=== PATIENT | female | born 1955 | race Caucasian/White ===

== ENCOUNTER 2020-09-18 06:17 | Day surgery (SDC) | payer MEDICARE, OTHER ==
[2020-09-18] MEDS ORDERED: Sodium Chloride 0.9% 1,000 ML IV SCH (07:00)
[2020-09-18] MEDS ORDERED: Propofol 200 MG/20 ML SDV ONE (07:21)
[2020-09-18] MEDS ORDERED: Midazolam 1 MG/ML 2 ML SDV ONE (07:21)
[2020-09-18] MEDS ORDERED: fentaNYL 100 MCG/2 ML SDV ONE (07:21)
--- NOTE | 2020-09-18 12:14 | OR ---
DATE OF PROCEDURE: 09/18/2020 SURGEON: Trey Neal MD PROCEDURE: Colonoscopy. FINDINGS: Normal colonoscopy. COMPLICATIONS: None. RAIL SPLITTER: None. ANESTHESIA: MAC. PREOPERATIVE DIAGNOSIS: Screening colonoscopy. POSTOPERATIVE DIAGNOSIS: Screening colonoscopy. RISKS: Risks, benefits, alternatives, and limitations including, but not limited to infection, bleeding, and perforation were explained to the patient who wished to proceed. PROCEDURE IN DETAIL: The patient was placed in left lateral decubitus position. Digital rectal exam was performed without abnormality. The scope was introduced and advanced atraumatically up to the ileocecal valve. A photo was taken of this. The scope was brought back to the ascending, transverse, descending colon, and retroflexed. No evidence of old or new blood. No masses. No polyps. The prep was marginal with approximately 80% of the luminal surface which could be seen. No diverticulosis. No colitis. No polyps. No abnormalities on retroflexion. Greater than 10 minutes was spent removing the scope. The patient tolerated the procedure. Trey Neal MD /[id number]
== END 2020-09-18 09:27 | disposition home or self-care (01) ==
LOC: JP.SDS 06:17
PROVIDERS: ATTEND Surgery
DX: Z12.11 Encounter for screening for malignant neoplasm of colon (principal); Z87.19 Personal history of other diseases of the digestive system
CPT/HCPCS: J2250; J2704; J3010; J7030

== ENCOUNTER 2021-10-30 10:32 | Day surgery (SDC) | payer MEDICARE, OTHER ==
[2021-10-30] MEDS ORDERED: Sodium Chloride 0.9% 1,000 ML IV SCH (11:15)
[2021-10-30] MEDS ORDERED: fentaNYL 100 MCG/2 ML SDV ONE (11:24)
[2021-10-30] MEDS ORDERED: Propofol 200 MG/20 ML SDV ONE (11:24)
[2021-10-30] MEDS ORDERED: Midazolam 1 MG/ML 2 ML SDV ONE (11:24)
--- NOTE | 2021-10-31 20:56 | OR ---
DATE OF PROCEDURE: 10/30/2021 SURGEON: Trey Neal MD PROCEDURES: 1. Esophagogastroduodenoscopy. 2. Gallegos pH monitor placement. 3. Polypectomy, using cold biopsy forceps in the junction of proximal to mid esophagus. COMPLICATIONS: None. COTTON TIPPER: None. ANESTHESIA: MAC. PREOPERATIVE DIAGNOSIS: Epigastric pain, concerning for reflux disease. POSTOPERATIVE DIAGNOSIS: Epigastric pain, concerning for reflux disease. RISKS: Risks, benefits, alternatives, and limitations including, but not limited to infection, bleeding, perforation, false positives and false negative were explained to patient who wished to proceed. PROCEDURE IN DETAIL: The patient was placed in left lateral decubitus position. The EGD scope was introduced and advanced atraumatically to the second part of the duodenum. No evidence of duodenitis or ulceration were noted. Within the stomach itself, there was no evidence of gastritis or ulceration. The GE junction showed inflammation concerning possibly for reflux disease. From the bite block to the Z-line was 38 cm. The esophagus inspected. There was a small polypoid type lesion, completely removed in the junction between the proximal and mid esophagus. The pH monitor was placed at 32 cm using the standard checklist. All steps from the checklist were verified during the process. Once the device was deployed, scope was reintroduced, and the area was noted to be intact without abnormality. The scope was then removed. The patient tolerated procedure well. Trey Neal MD /[id number]
== END 2021-10-30 13:15 | disposition home or self-care (01) ==
LOC: JP.SDS 10:32
PROVIDERS: ATTEND Surgery
DX: D13.0 Benign neoplasm of esophagus (principal); K21.9 Gastro-esophageal reflux disease without esophagitis
CPT/HCPCS: 43239; J2250; J2704; J3010; J7030

== ENCOUNTER 2022-09-10 08:28 | Day surgery (SDC) | payer MEDICARE, OTHER ==
[2022-09-10] MEDS ORDERED: Midazolam 1 MG/ML 2 ML SDV ONE (09:00)
[2022-09-10] MEDS ORDERED: Propofol 200 MG/20 ML SDV ONE (09:00)
[2022-09-10] MEDS ORDERED: Sodium Chloride 0.9% 1,000 ML IV SCH (09:15)
== END 2022-09-10 11:47 | disposition home or self-care (01) ==
LOC: JP.SDS 08:28
PROVIDERS: ATTEND Surgery
DX: K21.9 Gastro-esophageal reflux disease without esophagitis (principal)
CPT/HCPCS: 43239; J2250; J2704; J7030